=== PATIENT | male | born 1980 | race Caucasian/White ===

== ENCOUNTER 2022-12-16 21:57 | Observation (INO) | payer BC, OTHER ==
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
[2022-12-16 23:23] LABS: ALT 34 U/L (4-49); AST 45 U/L (17-59); African American GFR (CKD) >90 (>60 ml/min/1.73 sqM); Albumin 4.4 g/dL (3.5-5.0); Alkaline Phosphatase 70 U/L (38-126); Anion Gap 14 mmol/L; Blood Urea Nitrogen 8 mg/dL (9-20); Calcium 8.9 mg/dL (8.4-10.2); Carbon Dioxide 25 mmol/L (22-30); Chloride 103 mmol/L (98-107); Glucose 95 mg/dL (74-99); Non-African American GFR(CKD) >90 (>60 ml/min/1.73 sqM); Sodium 142 mmol/L (137-145); Total Bilirubin 0.4 mg/dL (0.2-1.3); Total Protein 7.1 g/dL (6.3-8.2)
[2022-12-16 23:40] LABS: Alcohol 298 mg/dL
[2022-12-16 23:54] LABS: Basophils # (A) 0.1 k/uL (0-0.2); Basophils % (A) 1 %; Eosinophils # (A) 0.2 k/uL (0-0.7); Eosinophils % (A) 2 %; HCT 45.8 % (39.0-53.0); HGB 15.3 gm/dL (13.0-17.5); Lymphocytes # (A) 2.5 k/uL (1.0-4.8); Lymphocytes % (A) 26 %; MCH 30.2 pg (25.0-35.0); MCHC 33.5 g/dL (31.0-37.0); MCV 89.9 fL (80.0-100.0); Mean Platelet Volume 6.9; Monocytes # (A) 0.4 k/uL (0-1.0); Monocytes % (A) 4 %; Neutrophils # (A) 6.2 k/uL (1.3-7.7); Neutrophils % (A) 65 %; Platelet Count 248 k/uL (150-450); RBC 5.09 m/uL (4.30-5.90); RDW 12.7 % (11.5-15.5); WBC 9.6 k/uL (3.8-10.6)
[2022-12-16 23:58] LABS: Partial Thromboplastin Time 23.2 sec (22.0-30.0); Prothrombin Time 10.2 sec (9.0-12.0)
[2022-12-17] MEDS ORDERED: NALOXONE 0.4 MG/ML 1 ML VIAL IV PRN (00:04)
[2022-12-17 00:51] LABS: Amphetamine Screen,Urine Not Detected (NotDetected); Barbiturate Screen,Urine Not Detected (NotDetected); Benzodiazepines Screen,Urine Not Detected (NotDetected); Cocaine Screen,Urine Not Detected (NotDetected); Methadone Screen, Urine Not Detected (NotDetected); Opiate Screen,Urine Not Detected (NotDetected); Oxycodone Screen, Urine Not Detected (NotDetected); Phencyclidine Screen,Urine Not Detected (NotDetected); Tricyclic Antidepressant,Urine Not Detected (NotDetected); Urn Cannabinoid Scrn Detected (NotDetected)
[2022-12-17] MEDS: SODIUM CHLORIDE 0.9% 1,000 ML IV SCH (00:51)
--- NOTE | 2022-12-17 12:02 | XR ---
EXAMINATION TYPE: XR thoracic spine complete DATE OF EXAM: 12/17/2022 COMPARISON: None HISTORY: Upper back pain TECHNIQUE: 3 view thoracic spine FINDINGS: 11 thoracic type vertebral bodies are identified. T12 may be out of the field of view. Vert ebral body heights are preserved. Alignment is preserved. Disc heights appear preserved. Spondylosis within the mid thoracic spine. Some scoliosis in the upper cervical thoracic junction which can be re lated to patient positioning or muscle spasm. IMPRESSION: 1. No acute osseous abnormality upper thoracic spine. 2. Mild scoliosis which can be positional or related to muscle spasm.
[2022-12-17] MEDS: HYDROcodone/APAP 5-325MG 1 EACH TAB PO PRN ×2 (13:59→20:02)
[2022-12-17] MEDS ORDERED: THIAMINE 100 MG/ML 2 ML VIAL IM STA (15:04)
[2022-12-17] MEDS ORDERED: LORazepam 1 MG TAB PO PRN ×3 (15:04)
[2022-12-17] MEDS ORDERED: LORazepam 0.5 MG TAB PO PRN (15:04)
[2022-12-17] MEDS ORDERED: ONDANSETRON 4 MG/2 ML VIAL IVP PRN (15:05)
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
[2022-12-17] MEDS ORDERED: hydrOXYzine HCL 25 MG TAB PO PRN (15:50)
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
[2022-12-17] MEDS: ESCITALOPRAM 20 MG TAB PO SCH (16:23)
[2022-12-17] MEDS: MULTIVITAMINS, THERA 1 EACH TAB PO SCH (16:23)
[2022-12-17] MEDS: GABAPENTIN 300 MG CAP PO SCH ×2 (16:23→20:02)
[2022-12-17] MEDS: HEPARIN SODIUM,PORCINE 5,000 UNIT/ML 1 ML VIAL SQ SCH (20:03)
[2022-12-18 02:36] VITALS: RESP 16
[2022-12-18] MEDS: SODIUM CHLORIDE 0.9% 1,000 ML IV SCH (03:14)
[2022-12-18] MEDS: HYDROcodone/APAP 5-325MG 1 EACH TAB PO PRN (06:42)
[2022-12-18] MEDS: PATIENT'S OWN (Dextroamphetamine/Amphetamine [Adderall] 30 MG Tablet) PO SCH ×2 (06:43→13:31)
[2022-12-18] MEDS ORDERED: PANTOPRAZOLE 40 MG TABLET PO SCH (07:30)
[2022-12-18] MEDS ORDERED: THIAMINE 100 MG TAB PO SCH (09:00)
[2022-12-18] MEDS: GABAPENTIN 300 MG CAP PO SCH (09:35)
[2022-12-18] MEDS: HEPARIN SODIUM,PORCINE 5,000 UNIT/ML 1 ML VIAL SQ SCH (09:35)
[2022-12-18] MEDS: ESCITALOPRAM 20 MG TAB PO SCH (09:36)
[2022-12-18] MEDS: MULTIVITAMINS, THERA 1 EACH TAB PO SCH (09:36)
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
[2022-12-18 14:22] VITALS: BP 129/69; PULSE 72; TEMP 98
== END 2022-12-18 14:44 | disposition home or self-care (01) ==
LOC: EC 21:57 → 1SOBS 12-17 00:04 → 6NMEDSUR 12-17 01:39
PROVIDERS: ADMIT Surgery; ATTEND Surgery
DX: M54.2 Cervicalgia (principal); M54.6 Pain in thoracic spine; V89.2XXA Person injured in unspecified motor-vehicle accident, traffic, initial encounter; F10.229 Alcohol dependence with intoxication, unspecified; Y90.8 Blood alcohol level of 240 mg/100 ml or more; F12.90 Cannabis use, unspecified, uncomplicated; M54.9 Dorsalgia, unspecified; F90.9 Attention-deficit hyperactivity disorder, unspecified type; F32.A Depression, unspecified; F41.9 Anxiety disorder, unspecified; F17.200 Nicotine dependence, unspecified, uncomplicated
CPT/HCPCS: 96372 ×2; 99285; 36415; 93005; 86900; 86901; 80053; 84484; 85025; 85610; 85730; 86850; 80306; 80320; 72072; 72125; 70450; 71260; 74177; G0378 ×2; J1644; J3411; Q9967